=== PATIENT | male | born 1955 | race Caucasian/White ===

== ENCOUNTER → 2019-07-25 | Outpatient (CLI) | payer OTHER ==
[~2019-07-25] MED LIST: FISH OIL 1,001000 M2 PO; GLUCOSAMINE CH1 EAC2 PO; MULTIVITAMINS1 EAC7 PO; NORCO 5-325 TA1 EACH PO; OMEPRAZOLE40 MG PO
== END ==
LOC: CAT 11:18
DX: Z13.6 Encounter for screening for cardiovascular disorders (principal); I25.10 Atherosclerotic heart disease of native coronary artery without angina pectoris; E78.00 Pure hypercholesterolemia, unspecified

== ENCOUNTER → 2019-10-08 | Outpatient (CLI) | payer OTHER ==
--- NOTE | 2019-10-08 14:51 | 2DMMODE ---
[facility] [place] [address] 2 D/M-MODE ECHOCARDIOGRAM Name: PHYLLIS MARQUEZ Room #: REG [facility]#: [id number] Admission: 10/08/19 Attend Phys: Jaquan Arce MD Discharge: Date of : 57 Report #: [id number] THIS REPORT FOR: //name// APPROVED REPORT Study performed: 10/08/2019 13:44:31 EXAM: Comprehensive 2D, Doppler, and color-flow Echocardiogram Patient Location: Out-Patient Status: routine BSA: 2.66 HR: 98 bpm BP: 131/92 mmHg Rhythm: NSR Other Information Study Quality: Adequate Indications Dyspnea Family history. 2D Dimensions RVDd: 37.95 mm IVSd: 10.54 (7-11mm) LVOT Diam: 22.94 (18-24mm) LVDd: 52.82 mm PWd: 10.65 (7-11mm) Ascending Ao: 37.70 (22-36mm) LVDs: 29.12 (25-40mm) Aortic Root: 37.64 mm Volumes Left Atrial Volume (Systole) Single Plane 4CH: 49.57 mL Single Plane 2CH: 54.61 mL LA ESV Index: 21.00 mL/m2 Aortic Valve AoV Peak Abhijit.: 1.54 m/s AO Peak Gr.: 9.48 mmHg LVOT Max P.87 mmHg LVOT Max V: 1.31 m/s ALMA DELIA Vmax: 3.52 cm2 Mitral Valve E/A Ratio: 0.9 MV Decel. Time: 231.93 ms [facility] [address] [place] [address] 2 D/M-MODE ECHOCARDIOGRAM Name: PHYLLIS MARQUEZ Room #: REG CL [facility]#: [id number] Admission: 10/08/19 Attend Phys: Jaquan Arce MD Discharge: Date of : 57 Report #: [id number] MV E Max Abhijit.: 0.67 m/s MV A Abhijit.: 0.76 m/s MV PHT: 67.26 ms IVRT: 64.59 ms Pulmonary Valve PV Peak Abhijit.: 1.19 m/s PV Peak Gr.: 5.63 mmHg Pulmonary Vein P Vein S: 0.60 m/s P Vein D: 0.33 m/s P Vein S/D Ratio: 1.82 Tricuspid Valve TR Peak Abhijit.: 2.21 m/s RAP Estimate: 5.00 mmHg TR Peak Gr.: 20.00 mmHg PA Pressure: 25.00 mmHg Left Ventricle The left ventricle is normal size. There is normal LV segmental wall motion. There is normal left ventricular wall thickness. Left ventricular systolic function is normal. LVEF is 60-65%. Mild diastolic dysfunction is present (impaired relaxation pattern). Right Ventricle The right ventricle is normal size. The right ventricular systolic function is normal. Atria The left atrium size is normal. The right atrium size is normal. Aortic Valve The aortic valve is normal in structure. No aortic regurgitation is present. There is no aortic valvular stenosis. Mitral Valve The mitral valve is normal in structure. There is no mitral valve regurgitation noted. No evidence of mitral valve stenosis. Tricuspid Valve The tricuspid valve is normal in structure. Trace tricuspid regurgitation. Estimated PAP is 25mmHg. Pulmonic Valve [facility] [address] [place] [address] 2 D/M-MODE ECHOCARDIOGRAM Name: PHYLLIS MARQUEZ CHANTEL [id number] Admission: 10/08/19 Attend Phys: Jaquan Arce MD Discharge: Date of : 57 Report #: [id number] Pulmonic valve is not well visualized. Great Vessels The aortic root is normal in size. The ascending aorta is normal in size. IVC is normal in size and collapses >50% with inspiration. Pericardium There is no pericardial effusion. <Conclusion> The left ventricle is normal size. There is normal left ventricular wall thickness. Left ventricular systolic function is normal. Mild diastolic dysfunction is present (impaired relaxation pattern). The right ventricle is normal size. The left atrium size is normal. The aortic valve is normal in structure. There is no mitral valve regurgitation noted. Trace tricuspid regurgitation. Estimated PAP is 25mmHg. <ELECTRONICALLY SIGNED> By: Jaquan Arce MD 10/08/191449 49 49 Jaquan Arce MD /INF
--- NOTE | 2019-10-08 14:52 | TST ---
[facility] [employer] [place] [address] TREADMILL STRESS TEST Name: PHYLLIS MARQUEZ CHANTEL Room #: REG CL [facility]#: [id number] Admission: 10/08/19 Attend Phys: Jaquan Arce MD Discharge: Date of : 57 Report #: [id number] THIS REPORT FOR: //name// APPROVED REPORT Patient Location: Out-Patient Room #: Stress lab Stress Nurse: Cindy Nuñez RN The patient exercised according to the DON protocol for 10 mins; achieving a work level of 11.7 METS. The resting heart rate of 98 bpm vince to a maximum heart rate of 169 bpm. This value represent 107% of the maximal, age-predicted heart rate. The resting blood pressure of 140/84 mmHg, vince to a maximum blood pressure of 177/105 mmHg. The exercise test was stopped due to maximal effort Conclusion 1. Clinical response, nonischemic. 2. Stress ECG response, nonischemic. 3. Exercise capacity, average. <ELECTRONICALLY SIGNED> By: Jaquan Arce MD 10/08/191450 50 50 Jaquan Arce MD /INF
== END ==
LOC: CV 12:59
DX: R06.00 Dyspnea, unspecified (principal)

== ENCOUNTER → 2021-11-11 | Outpatient (CLI) | payer OTHER, MEDICARE ==
[~2021-11-11] MED LIST changes: +FLOMAX0.4 MG PO; +MULTI VITAMIN1 EACH PO; +NEURONTIN300 MG PO
== END ==
LOC: LAB 05:33
PROVIDERS: ATTEND Student in an Organized Health Care Education/Training Program
DX: Z01.812 Encounter for preprocedural laboratory examination (principal); Z20.822 Contact with and (suspected) exposure to COVID-19

== ENCOUNTER → 2021-11-13 | Outpatient (CLI) | payer OTHER, MEDICARE ==
[~2021-11-13] VITALS: Ht 198.1 cm; Wt 145.2 kg
--- NOTE | 2021-11-16 14:59 | P ---
[facility] [place] [address] PROCEDURE REPORT Name: PHYLLIS MARQUEZ CHANTEL [id number] Admission: 11/13/21 Attend Phys: Eric Multani Discharge: Date of : 57 Report #: [id number] THIS REPORT FOR: cc: Jessica Sanchez Beth RNP McElhinney, Christian C. MD ~ cc: KATHY Dobbins DATE OF SERVICE: 11/13/2021 PROCEDURE PERFORMED: Colonoscopy with biopsies. HISTORY OF PRESENT ILLNESS: The patient is a 66-year-old male with a history of adenomatous polyp removed in 2014. Denies any symptoms at this time. No family history of colon cancer. DESCRIPTION OF PROCEDURE: The risks and benefits of the procedure were explained to the patient, those risks including but not limited to bleeding, perforation and the risk of sedation. He understood these risks and gave informed consent. Sedation was given using propofol per anesthesia. Next, a digital rectal exam was initially performed, which was normal. Next, using a standard Olympus colonoscope, the scope was placed in the patient's anus and advanced under direct vision to the cecum. The overall prep was good. In the cecum, there was a 4 mm sessile polyp. This was removed with cold forceps, otherwise normal. The ileocecal valve was normal. In the ascending colon, a 2 cm lipoma was noted, otherwise normal. The transverse and descending colon were normal. Multiple diverticula were noted in the sigmoid colon. No evidence of inflammation. The rectal mucosa was normal. On retroflexion, small nonbleeding internal hemorrhoids were noted. The scope was then withdrawn and the procedure terminated. The patient tolerated the procedure well. IMPRESSION: 1. Cecal polyp. 2. Sigmoid diverticulosis. 3. Small internal hemorrhoids. 4. Otherwise, normal colonoscopy. RECOMMENDATIONS: 1. Await biopsy results. 2. Repeat colonoscopy in [address] [address] PROCEDURE REPORT Name: PHYLLIS MARQUEZ Room #: REG [facility]#: [id number] Admission: 11/13/21 Attend Phys: Eric Multani Discharge: Date of : 57 Report #: [id number] Thank you for allowing me to participate in his care. <ELECTRONICALLY SIGNED> By: Eric Jalloh MD 11/16/21 1459 0914 [id number] Eric Jalloh MD /nt
--- NOTE | 2021-11-16 17:06 | PATH ---
[facility] [address] [place] [address] PATHOLOGY RPT PROCEDURE Name: PHYLLIS RAMOS Room #: REG CL [facility]#: [id number] Admission: 11/13/21 Date of : 57 Discharge: Report #: [id number] Path Case #: [id number] [facility] Accession Number: [id number] . 01 Material submitted: . cecum - CECAL POLYP . 01 Clinical history: . COLONOSCOPY COLON CANCER SCREENING DIVERTICULOSIS, POLYP . 02 Diagnosis: Large bowel "cecal polyp", biopsy: - Tubular adenoma; negative for high-grade dysplasia and malignancy. (MLK:erna; 11/16/2021) S 11/16/2021 1433 Local . 02 Electronically signed: . Joselo Dasilva MD, Pathologist NPI- [id number] . 01 Gross description: . The specimen is received in formalin, labeled "Phyllis Ramos, cecal polyp". Received are 3 segments of pale bernal tissue ranging in size from 0.2-0.3 cm in maximum dimensions. The specimen is entirely submitted in cassette A1. ([facility]; 11/13/2021) NRI/NRI 11/16/2021 1432 Local . 02 Pathologist provided ICD-10: D12.0 . 02 CPT . 480750 Specimen Comment: A courtesy copy of this report has been sent to [phone], [phone] Specimen Comment: [id number] Specimen Comment: Report sent to / DR CHRISTIAN Performed at: 01 [facility] [address] [place] [id number] MD Yohannes Melvin MD Phone: [phone] Performed at: [address] [id number] MD Jonathan Fleming MD Phone: [phone]
== END | disposition home or self-care (01) ==
LOC: GI 07:32
PROVIDERS: ATTEND Specialist
DX: Z12.11 Encounter for screening for malignant neoplasm of colon (principal); Z86.010 Personal history of colon polyps; D12.0 Benign neoplasm of cecum; K57.30 Diverticulosis of large intestine without perforation or abscess without bleeding; K64.8 Other hemorrhoids; K21.9 Gastro-esophageal reflux disease without esophagitis; Z98.890 Other specified postprocedural states; Z79.899 Other long term (current) drug therapy
CPT/HCPCS: 62110; 62900; 70005